=== PATIENT | female | born 1995 | race African-American/Black ===

== ENCOUNTER 2018-08-13 23:47 | Emergency (ER) | payer MEDICAID ==
[~2018-08-13] VITALS: Ht 177.8 cm; Wt 125.0 kg
[2018-08-14] MEDS ORDERED: SODIUM CHLORIDE 0.9% 1,000 ML IV ONE (01:41)
[2018-08-14] MEDS ORDERED: ONDANSETRON HCL 4MG/2ML INJ IV STA (01:41)
[2018-08-14] MEDS ORDERED: FAMOTIDINE 20MG/2ML VIAL IV STA (01:41)
[2018-08-14 01:55] LABS: BASOPHILS % 0.7 % (0.0-2.0); EOSINOPHILS % 1.2 % (0.0-5.0); HEMATOCRIT. 38.9 % (36.0-48.0); HEMOGLOBIN. 12.4 g/dL (12.0-16.0); LYMPHOCYTES % 27.9 % (20.0-50.0); MEAN CORPUSCULAR HEMOGLOBIN 25.7 pg (28.0-32.0); MEAN CORPUSCULAR VOLUME 80.3 fL (81.0-99.0); MEAN PLATELET VOLUME 9.5 fl (7.4-10.4); MONOCYTES % 9.5 % (2.0-8.0); NEUTROPHILS % 60.7 % (40.0-76.0); PLATELET 369 x1000/uL (130-400); RED BLOOD CELL COUNT 4.84 mill/uL (4.2-5.4); RED CELL DISTRIBUTION WIDTH 13.9 % (11.6-14.6)
[2018-08-14 02:03] LABS: PROTHROMBIN TIME 10.2 sec (9.1-11.1)
[2018-08-14 02:06] LABS: COLOR URINE YELLOW (YELLOW); KETONES URINE NEGATIVE (NEGATIVE); LEUKOCYTE ESTERASE URINE 2+ (NEGATIVE); NITRITE URINE NEGATIVE (NEGATIVE); OCCULT BLOOD URINE 1+ (NEGATIVE); PH URINE 5.5 (4.5-8.0); PROTEIN URINE 1+ (NEGATIVE); UROBILINOGEN URINE 0.2 E.U./dL (0.2-1.0)
[2018-08-14 02:07] LABS: CLARITY URINE HAZY (CLEAR)
[2018-08-14 02:34] LABS: CHLORIDE 105 mEq/L (98-107)
[2018-08-14 02:38] LABS: ETHANOL BLOOD < 10 mg/dL
[2018-08-14] MEDS ORDERED: ONDANSETRON HCL 4MG/2ML INJ IV SCH (04:13)
[2018-08-14] MEDS ORDERED: ACETAMINOPHEN WITH CODEINE 300/30MG TABLET PO SCH (04:14)
[2018-08-14 05:42] VITALS: BP 132/76
== END 2018-08-14 05:45 | disposition home or self-care (01) ==
LOC: ER 23:47
DX: K52.9 Noninfective gastroenteritis and colitis, unspecified (principal)
CPT/HCPCS: 36415; 80053; 80320; 81003; 83690; 85025; 85610; 87077; 87086; 87186; 96361; 96374; 96375; 96376; 99283; J2405; J3490; J7030; Z7610; G0480

== ENCOUNTER 2018-12-04 11:17 | Emergency (ER) | payer MEDICAID ==
[~2018-12-04] VITALS: Ht 177.8 cm; Wt 170.0 kg
[2018-12-04] MEDS ORDERED: SODIUM CHLORIDE 0.9% 1,000 ML IV ONE (12:44)
[2018-12-04 13:23] LABS: CLARITY URINE CLOUDY (CLEAR); COLOR URINE YELLOW (YELLOW); KETONES URINE TRACE (NEGATIVE); LEUKOCYTE ESTERASE URINE 3+ (NEGATIVE); NITRITE URINE NEGATIVE (NEGATIVE); OCCULT BLOOD URINE TRACE (NEGATIVE); PH URINE 7.5 (4.5-8.0); PROTEIN URINE NEGATIVE (NEGATIVE); SPECIFIC GRAVITY URINE 1.018 (1.005-1.030); UROBILINOGEN URINE 0.2 E.U./dL (0.2-1.0)
[2018-12-04 13:53] LABS: *COCAINE SCREEN URINE NEGATIVE (NEGATIVE)
[2018-12-04 13:54] LABS: *BARBITURATES SCREEN URINE NEGATIVE (NEGATIVE); *BENZODIAZEPINES SCREEN URINE NEGATIVE (NEGATIVE); CANNABINOID URINE SCREEN NEGATIVE (NEGATIVE); METHADONE URINE SCREEN NEGATIVE (NEGATIVE); OPIATES URINE SCREEN NEGATIVE (NEGATIVE); PHENCYCLIDINE URINE SCREEN NEGATIVE (NEGATIVE)
[2018-12-04 13:55] LABS: *AMPHETAMINES SCREEN URINE NEGATIVE (NEGATIVE)
[2018-12-04] MEDS ORDERED: CEFAZOLIN 1000MG PREMIX 50 ML IV ONE (14:15)
[2018-12-04 14:16] LABS: CHLORIDE 103 mEq/L (98-107); HEMATOCRIT. 35.5 % (36.0-48.0); HEMOGLOBIN. 11.6 g/dL (12.0-16.0); MEAN CORPUSCULAR HEMOGLOBIN 26.8 pg (28.0-32.0); MEAN CORPUSCULAR VOLUME 81.9 fL (81.0-99.0); MEAN PLATELET VOLUME 8.8 fl (7.4-10.4); PLATELET 216 x1000/uL (130-400); RED BLOOD CELL COUNT 4.34 mill/uL (4.2-5.4); RED CELL DISTRIBUTION WIDTH 13.9 % (11.6-14.6)
[2018-12-04 14:39] LABS: B-HCG QUANTITATIVE 7179 mIU/mL (<3)
[2018-12-04 15:55] VITALS: BP 109/88
[2018-12-04 18:58] LABS: PLATELET ESTIMATE NORMAL
== END 2018-12-04 16:00 | disposition home or self-care (01) ==
LOC: ER 11:17
DX: O23.32 Infections of other parts of urinary tract in pregnancy, second trimester (principal); Z3A.17 17 weeks gestation of pregnancy; F12.10 Cannabis abuse, uncomplicated
CPT/HCPCS: 36415; 76805; 80048; 80305; 81003; 84702; 85025; 86850; 86900; 86901; 87086; 96365; 99284; J0690; J7030

== ENCOUNTER 2019-04-12 19:47 | Observation (INO) | payer MEDICAID ==
[~2019-04-12] VITALS: Ht 177.8 cm; Wt 158.8 kg
[2019-04-12] MEDS ORDERED: LACTATED RINGERS 1,000 ML IV SCH (20:37)
[2019-04-12] MEDS ORDERED: LACTATED RINGERS 1,000 ML IV ONE (20:37)
[2019-04-12] MEDS ORDERED: ONDANSETRON HCL 4MG/2ML INJ IV NR (20:45)
[2019-04-12] MEDS ORDERED: ACETAMINOPHEN 500MG TABLET PO NR (20:45)
[2019-04-12 21:33] LABS: HEMATOCRIT 36.7 % (36.0-48.0); HEMOGLOBIN 11.9 g/dL (12.0-16.0); MEAN CORPUSCULAR HEMOGLOBIN 26.7 pg (28.0-32.0); MEAN CORPUSCULAR VOLUME 82.4 fL (81.0-99.0); PLATELET 277 x1000/uL (130-400); RED BLOOD CELL COUNT 4.45 mill/uL (4.2-5.4); RED CELL DISTRIBUTION WIDTH 13.1 % (11.6-14.6)
[2019-04-12 21:56] LABS: CLARITY URINE CLEAR (CLEAR); COLOR URINE DARK YELLOW (YELLOW); KETONES URINE TRACE (NEGATIVE); LEUKOCYTE ESTERASE URINE 2+ (NEGATIVE); NITRITE URINE POSITIVE (NEGATIVE); OCCULT BLOOD URINE 3+ (NEGATIVE); PROTEIN URINE 3+ (NEGATIVE); SPECIFIC GRAVITY URINE 1.027 (1.005-1.030)
[2019-04-12] MEDS ORDERED: CEFAZOLIN 2,000 MG in DEXT 5% WATER 100 ML IV NR (22:31)
== END 2019-04-12 23:30 | disposition home or self-care (01) ==
LOC: 8 EST LDRP 19:47
PROVIDERS: ADMIT Obstetrics & Gynecology; ATTEND Obstetrics & Gynecology
DX: O46.93 Antepartum hemorrhage, unspecified, third trimester (principal); O26.893 Other specified pregnancy related conditions, third trimester; M54.9 Dorsalgia, unspecified; R11.0 Nausea; Z3A.36 36 weeks gestation of pregnancy
CPT/HCPCS: 36415; 81003; 85027; 96365; 99281; G0378; J0690; J7060

== ENCOUNTER 2019-05-01 03:29 | Inpatient (IN) | payer MEDICAID ==
[~2019-05-01] VITALS: Ht 177.8 cm; Wt 158.8 kg
[2019-05-01] MEDS ORDERED: DEXT 5%/LACTATED RINGERS 1,000 ML IV SCH (04:36)
[2019-05-01] MEDS ORDERED: DEXT 5%/LR + PITOCIN 20UNITS/L 1,000 ML IV SCH ×2 (04:36→11:05)
[2019-05-01] MEDS ORDERED: LIDOCAINE HCL 1% 20ML VIAL (Pyxis) INJ INFIL SCH (04:45)
[2019-05-01] MEDS ORDERED: METHYLERGONOVINE MALEATE 0.2 MG/ML IM PRN ×2 (04:45→11:15)
[2019-05-01] MEDS ORDERED: NALOXONE HCL 0.4 MG/ML 1ML VIAL IM PRN (04:45)
[2019-05-01] MEDS ORDERED: CARBOPROST TROMETHAMINE 250 MCG/ML AMPUL IM PRN (04:45)
[2019-05-01] MEDS ORDERED: BUTORPHANOL TARTRATE 2 MG/ML VIAL IV PRN (04:45)
[2019-05-01] MEDS ORDERED: MISOPROSTOL 100MCG TABLET VG SCH (04:45)
[2019-05-01] MEDS ORDERED: AMPICILLIN 2,000 MG in SODIUM CHLORIDE 0.9% 100 ML IV SCH (05:00)
[2019-05-01] MEDS: LACTATED RINGERS 1,000 ML IV SCH ×2 (05:56→08:10)
[2019-05-01 06:04] LABS: CLARITY URINE CLOUDY (CLEAR); COLOR URINE YELLOW (YELLOW); KETONES URINE NEGATIVE (NEGATIVE); LEUKOCYTE ESTERASE URINE 3+ (NEGATIVE); NITRITE URINE NEGATIVE (NEGATIVE); OCCULT BLOOD URINE 2+ (NEGATIVE); PH URINE 6.5 (4.5-8.0); PROTEIN URINE 1+ (NEGATIVE)
[2019-05-01 06:08] LABS: PARTIAL THROMBOPLASTIN TIME 27.5 sec (23.4-31.0); PROTHROMBIN TIME 10.1 sec (9.6-11.0)
[2019-05-01 06:16] LABS: BASOPHILS % 0.6 % (0.0-2.0); EOSINOPHILS % 1.4 % (0.0-5.0); HEMATOCRIT. 35.7 % (36.0-48.0); HEMOGLOBIN. 11.5 g/dL (12.0-16.0); LYMPHOCYTES % 23.1 % (20.0-50.0); MEAN CORPUSCULAR HEMOGLOBIN 26.6 pg (28.0-32.0); MEAN CORPUSCULAR VOLUME 82.3 fL (81.0-99.0); MEAN PLATELET VOLUME 9.6 fl (7.4-10.4); MONOCYTES % 11.1 % (2.0-8.0); NEUTROPHILS % 63.8 % (40.0-76.0); PLATELET 277 x1000/uL (130-400); RED BLOOD CELL COUNT 4.33 mill/uL (4.2-5.4); RED CELL DISTRIBUTION WIDTH 13.3 % (11.6-14.6)
[2019-05-01 06:19] LABS: CHLORIDE 105 mEq/L (98-107)
[2019-05-01 06:30] LABS: *AMPHETAMINES SCREEN URINE NEGATIVE (NEGATIVE); *BARBITURATES SCREEN URINE NEGATIVE (NEGATIVE); *BENZODIAZEPINES SCREEN URINE NEGATIVE (NEGATIVE); *COCAINE SCREEN URINE NEGATIVE (NEGATIVE)
[2019-05-01 06:31] LABS: CANNABINOID URINE SCREEN NEGATIVE (NEGATIVE); METHADONE URINE SCREEN NEGATIVE (NEGATIVE); OPIATES URINE SCREEN NEGATIVE (NEGATIVE); PHENCYCLIDINE URINE SCREEN NEGATIVE (NEGATIVE)
[2019-05-01 06:53] LABS: HEPATITIS B SURFACE ANTIGEN NEGATIVE
[2019-05-01] MEDS ORDERED: PRENATAL VITAMIN (06:54)
[2019-05-01] MEDS ORDERED: ROPIVACAINE HCL 2MG/ML (0.2%) 200ML BOTTLE IR SCH (07:45)
[2019-05-01] MEDS ORDERED: FENTANYL CITRATE/PF 50MCG/ML 2ML VIAL ONE (08:10)
[2019-05-01] MEDS ORDERED: BUPIVACAINE HCL/PF 0.25% (2.5MG/ML) 10ML ONE (08:12)
[2019-05-01] MEDS ORDERED: AMPICILLIN 1,000 MG in SODIUM CHLORIDE 0.9% 50 ML IV SCH (11:00)
[2019-05-01] MEDS ORDERED: RHO(D) IMMUNE GLOBULIN 300 MCG/SYR IM PRN (11:15)
[2019-05-01] MEDS ORDERED: IBUPROFEN 400MG TABLET PO PRN (11:15)
[2019-05-01] MEDS ORDERED: LANOLIN OINT 7GM TUBE TOP PRN (11:15)
[2019-05-01] MEDS ORDERED: DIPHENHYDRAMINE 25MG CAPSULE PO PRN (11:15)
[2019-05-01 13:00] VITALS: BP 128/63
[2019-05-01] MEDS: IBUPROFEN 800MG TABLET PO PRN (18:51)
[2019-05-01 19:45] VITALS: BP 94/60
[2019-05-02 05:00] VITALS: BP 117/57
[2019-05-02 06:20] LABS: BASOPHILS % 0.7 % (0.0-2.0); EOSINOPHILS % 2.2 % (0.0-5.0); HEMATOCRIT. 32.9 % (36.0-48.0); HEMOGLOBIN. 10.8 g/dL (12.0-16.0); LYMPHOCYTES % 21.7 % (20.0-50.0); MEAN CORPUSCULAR HEMOGLOBIN 26.9 pg (28.0-32.0); MEAN CORPUSCULAR VOLUME 82.1 fL (81.0-99.0); MEAN PLATELET VOLUME 9.2 fl (7.4-10.4); MONOCYTES % 9.6 % (2.0-8.0); NEUTROPHILS % 65.8 % (40.0-76.0); PLATELET 215 x1000/uL (130-400)
[2019-05-02 08:00] VITALS: BP 133/87
[2019-05-02] MEDS ORDERED: PRENATAL VIT/FE FUMARATE/FA TABLET PO SCH (09:00)
[2019-05-02] MEDS: IBUPROFEN 800MG TABLET PO PRN ×2 (12:59→20:41)
[2019-05-02 16:10] VITALS: BP 118/64
[2019-05-02 20:00] VITALS: BP 118/72
[2019-05-03 04:00] VITALS: BP 107/54
[2019-05-03] MEDS ORDERED: IBUP-2030 PO (07:30)
[2019-05-03 07:56] VITALS: BP 112/66
[2019-05-03 10:22] VITALS: BP 107/54
[2019-05-03] MEDS: IBUPROFEN 800MG TABLET PO PRN (10:22)
== END 2019-05-03 11:10 | disposition home or self-care (01) | DRG 560 ==
LOC: OBSVTOIN 03:29 → 8 EST LDRP 03:29 → 8EST 12:45
PROVIDERS: ADMIT Obstetrics & Gynecology; ATTEND Obstetrics & Gynecology
PROC: 00HU33Z Insertion of Infusion Device into Spinal Canal, Percutaneous Approach (ICD-10-PCS; principal; 2019-05-01)
PROC: 10E0XZZ Delivery of Products of Conception, External Approach (ICD-10-PCS; 2019-05-01)
PROC: 3E0R3BZ Introduction of Anesthetic Agent into Spinal Canal, Percutaneous Approach (ICD-10-PCS; 2019-05-01)
PROC: 0HQ9XZZ Repair Perineum Skin, External Approach (ICD-10-PCS; 2019-05-01)
DX: O99.214 Obesity complicating childbirth (principal); E66.9 Obesity, unspecified; O70.0 First degree perineal laceration during delivery; Z37.0 Single live birth; Z3A.39 39 weeks gestation of pregnancy; Z82.49 Family history of ischemic heart disease and other diseases of the circulatory system; Z80.8 Family history of malignant neoplasm of other organs or systems
CPT/HCPCS: 36415; 80305; 81003; 86592; 86703; 86762; 86850; 86900; 87077; 87186; 87340; 99281; J0290; J2590; J3010; J3490; J7050; J7120; A4315